=== PATIENT | male | born 1970 | race Caucasian/White ===

== ENCOUNTER 2021-01-07 11:13 | Outpatient (CLI) | payer MEDICARE, SELFPAY ==
--- NOTE | 2021-01-07 12:13 | XR_ITS ---
WS: [id number] Right hip, AP and frog leg views, 01/07/2021 Clinical Data: CHRONIC HIP PAIN Comparison: None. Findings: There is a right hip nail reducing an old right intertrochanteric hip fracture. The femoral head shows no erosion, destruction or sclerosis or cyst formation. There is a spur on the medial inferior aspect of the femoral head. There is a small right acetabular lip. XR/XR hip RT 2-3V wo/w pel* 57285 Impression: 1. Satisfactory position right hip nail reduce in old right intertrochanteric f racture. 2. 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 Tonnis classification: grade 1: sclerosis of femoral head and acetabulum or sli ght joint space narrowing or slight lipping at joint margins
== END 2021-01-07 11:14 | disposition home or self-care (01) ==
LOC: RADWPI 11:20 → RAD 12:06
PROVIDERS: PCP Family Medicine; Visit Provider Family Medicine
DX: M88.9 Osteitis deformans of unspecified bone (principal); M25.551 Pain in right hip; G89.29 Other chronic pain; Z96.641 Presence of right artificial hip joint
CPT/HCPCS: 73502

== ENCOUNTER → 2021-01-20 10:44 | Day surgery (SDC) | payer MEDICARE, SELFPAY ==
[2021-01-20 11:05] VITALS: BMI 32.3
--- NOTE | 2021-01-20 11:05 | PC.NURSE ---
Pt states he had labs drawn on 01/06/21 per his PCP and Calcium level was 9.6. Prolia injection given as ordered.
[2021-01-20] MEDS: denosumab 60 mg SDV SUBCUT (11:12)
[2021-01-20 11:15] VITALS: BP 133/73; PULSE 107; RESP 18; TEMP 36.6; O2SAT 97
== END ==
LOC: GILAB 10:50
PROVIDERS: PCP Family Medicine; Visit Provider Family Medicine
DX: M89.9 Disorder of bone, unspecified (principal)
CPT/HCPCS: 96372; J0897

== ENCOUNTER → 2021-02-03 08:49 | Outpatient (BNVA) | payer MEDICARE, SELFPAY | PROVIDERS: PCP Family Medicine; Referring Provider Family Medicine; Visit Provider Internal Medicine | DX: M81.0 Age-related osteoporosis without current pathological fracture (principal); M89.9 Disorder of bone, unspecified; M88.88 Osteitis deformans of other bones; M25.551 Pain in right hip; M25.552 Pain in left hip; Z87.891 Personal history of nicotine dependence | CPT/HCPCS: 99205 ==

== ENCOUNTER → 2021-02-15 08:24 | Outpatient (BNVA) | payer MEDICARE, SELFPAY | PROVIDERS: PCP Family Medicine; Visit Provider Anesthesiology | DX: G89.29 Other chronic pain (principal); M54.50 Low back pain, unspecified; M54.2 Cervicalgia; M89.9 Disorder of bone, unspecified; M81.0 Age-related osteoporosis without current pathological fracture; Z79.891 Long term (current) use of opiate analgesic; Z87.891 Personal history of nicotine dependence | CPT/HCPCS: 99204 ==

== ENCOUNTER 2021-02-18 10:29 | Outpatient (CLI) | payer MEDICARE, SELFPAY ==
--- NOTE | 2021-02-18 11:18 | ECG_ITS ---
[facility] Test Date: 2021-02-18 Pat Name: Manoj Orona Jr Department: Room: Gender: Male [employer]: : 1970 Requested By: Bulmaro Seymour Order Number: [id number] Willis MD: Cecilio Adan M.D. Measurements Intervals [place] Rate: 100 P: 24 NC: 142 QRS: -21 QRSD: 98 T: 3 QT: 333 QTc: 430 Interpretive Statements SINUS TACHYCARDIA BORDERLINE LEFT AXIS DEVIATION [QRS AXIS < -20] ABNORMAL RHYTHM ECG No previous ECG available for comparison Electronically Signed On 02-18-2021 22:49:01 CDT by Cecilio Adan M.D. [id number]
== END 2021-02-18 10:30 | disposition home or self-care (01) ==
LOC: RT 10:33
PROVIDERS: PCP Family Medicine; Visit Provider Anesthesiology
DX: Z79.891 Long term (current) use of opiate analgesic (principal); R00.0 Tachycardia, unspecified; R94.31 Abnormal electrocardiogram [ECG] [EKG]
CPT/HCPCS: 93005

== ENCOUNTER → 2021-03-16 09:21 | Outpatient (BNVA) | payer MEDICARE, SELFPAY | PROVIDERS: PCP Family Medicine; Visit Provider Specialist | DX: G43.711 Chronic migraine without aura, intractable, with status migrainosus (principal); M54.2 Cervicalgia; M54.9 Dorsalgia, unspecified; G89.29 Other chronic pain; R20.0 Anesthesia of skin; R20.2 Paresthesia of skin; Z87.891 Personal history of nicotine dependence | CPT/HCPCS: 99204; 99214 ==

== ENCOUNTER 2021-04-15 13:44 | Outpatient (CLI) | payer MEDICARE, SELFPAY ==
--- NOTE | 2021-04-15 14:16 | XR_ITS ---
WS: [id number] XR hip BI m 5V wo/w pel* 47887 REASON FOR EXAM: M25.559 - Pain in unspecified hip FINDINGS: RIGHT HIP: Short intramedullary dany and large femoral neck nail fixation of previous intertrochanteric fracture of the right hip. Mild coxa vera deformity. No fracture or dislocation. LEFT HIP: Previous hip nailing with 3 long screws. Marked varus deformity due to presumed subacute fracture th rough the intertrochanteric region with severe varus deformity. The femoral neck and nails are essent ially in a horizontal position. XR/XR hip BI m 5V wo/w pel* 11008 IMPRESSION: Left hip fracture of uncertain age by history. There R naked margins of bone in dicating subacute or acute fracture. Severe varus deformity as above.
== END 2021-04-15 13:45 | disposition home or self-care (01) ==
PROVIDERS: PCP Family Medicine; Visit Provider Specialist
DX: M25.551 Pain in right hip (principal); S72.002A Fracture of unspecified part of neck of left femur, initial encounter for closed fracture; X58.XXXA Exposure to other specified factors, initial encounter
CPT/HCPCS: 73523

== ENCOUNTER 2021-04-15 15:17 | Emergency (ER) | payer MEDICARE, SELFPAY ==
--- NOTE | 2021-04-15 15:31 | CT_ITS ---
WS: [id number] CT LEFT HIP, NONCONTRAST. HISTORY: LEFT hip fracture. Technique: All CT scans at [facility] use at least one of these dose optimization techniques: automated exposure control; mA and/or kV adjustment per patient size (includes targeted exams where dose is matched to clinical indication); or iterative reconstruction. DLP: 1364.42 mGy.cm COMPARISON: Radiograph 04/15/2021. Deformity of the LEFT hip with varus deformity. There is impaction along an intertrochanteric fractur e. Fracture by approximately 17 mm. There are 3 previously placed long screws extending joan ng the greater trochanter to the femoral neck and head. Fracture is near the base of the screws and e xtends subtrochanteric into the lesser trochanter. There is an additional nondisplaced fracture through the LEFT inferior pubic rami. There are fracture s in 2 [address]. These are nondisplaced fractures. There is an additional nondisplaced fractur e along the superior LEFT pubic rami. This fracture is best seen on the coronal reformats. CT/CT hip LT wo con* 45731 IMPRESSION: 1. New acute oblique fracture with displacement by 17 mm through the base of t he intertrochanteric screws. Fracture is intertrochanteric and extends subtroch anteric. 2. New nondisplaced fractures involving the LEFT superior and inferior pubic r ami.
--- NOTE | 2021-04-15 15:33 | W.ED.GENADLT ---
HPI - General Adult General: Chief complaint: Extremity Injury, Lower Stated complaint: FX HIP Time Seen by Provider: 04/15/21 15:21 History of Present Illness: HPI narrative: Patient is a 50-year-old male with history of Paget's disease, chronically wheelchair-bound, status post bilateral fixations presenting to the emergency room with complaints of 2 weeks of worsening left-sided hip pain. Patient was seen earlier today [place] [facility] was diagnosed with left-sided hip fracture. Patient was told to come to the emergency room for evaluation. Patient at the present time reports mild pain. Denies any other injuries. Patient reports that he thinks that he sustained the injury when he was in bed. Patient denies any rolling, other injuries, fall, or other trauma. Onset:2 weeks ago Duration:2 weeks Location:home Severity: moderate Review of Systems Narrative: Constitutional: No fever, no chills. HEENT: No vision changes CV: No chest pain, no palpitations PULM: no cough, no dyspnea. GI: No abdominal pain, no N/V/D. : No dysuria MSKEL: +L sided hip pain SKIN: No new rashes, no lesions. NEURO: No headache, no focal weakness. HEME: No visible bruises PSYCH: Normal mood PFSH ED PFSH: Medical History Carpal tunnel syndrome of right wrist Chronic lower back pain Chronic neck and back pain Cluster headaches Encounter for long-term opiate analgesic use Fibromyalgia High serum cholesterol sulfate HTN (hypertension) with goal to be determined IBS (irritable bowel syndrome) Opioid contract exists Osteoporosis Paget's disease Surgical History History of cholecystectomy History of hip surgery Family History Father Diabetes Chronic pain Mother Hypertension Social History Smoking and tobacco status: former smoker Quit status (tobacco): has quit using tobacco Second hand smoke exposure: Yes Smoking risk assessment/counseling performed?: Yes Alcohol intake: never Desire information about alcohol rehabilitation?: No Counseling given: No Desire information about substance/drug rehabilitation?: No Counseling given: Yes Caregiver/support person: Yes Lives independently: Yes Household members: spouse and family Housing: House Marital status: Number of children: 4 Highest education level completed: Some College, No Degree service: No Current occupational status: disabled History of recent travel: No Physical Exam Narrative: EXAM NARRATIVE: Head: Atraumatic Eyes: PERRL, conjunctiva without injection ENT: Mucous membrane moist NECK: Supple, ROM intact LUNGS: LCTAB, no crackles/rhonchi CV: RRR ABDOMEN: Soft, nontender in all quadrants EXTREMITY: Normal ROM of L hip intact, +moderate L hip tenderness to palpation, neurovascular exam of the L hip intact SKIN: No rash or erythema NEURO: Awake and alert, no focal motor deficits PSYCH: Normal mood and affect Course Vital Signs: Vital signs: Vital Signs Temperature 98.9 F 04/15/21 16:02 Pulse Rate 115 H 04/15/21 16:02 Respiratory Rate 16 04/15/21 16:02 Blood Pressure 132/102 04/15/21 16:02 Pulse Oximetry 97 04/15/21 16:02 MDM - General Adult MDM Narrative: Medical decision making narrative: 50M presenting to the ER with complaints of L hip pain w/ XR from [facility] showing L sided hip fracture. On exam neurovascularly intact. +mild tttp to the L hip. Case was immediately discussed with Dr. Man at 5:17 PM. Given patient already has 2 previous fixations with now what looks like fracture at the base of the screw, patient will need possible plating. Dr. Orta reviewed thinks that this may be a complicated procedure patient will be better suited for transfer outside facility. Case was discussed with Dr. Meredith who agreed with the transfer to [facility] for orthopedic evaluation. Disposition: Transfer to outside hospital Lab Data: Labs: Lab Results 04/15/21 20:50 SARS-CoV-2 Ag (Rap id) Negative (Negative) Imaging Data^: Other Imaging: Radiologist's impression: [address] [id number] ReportSigned Patient: Manoj Orona Jr #: [id number]: 1970Acct#:[id number]/Sex: 50 / MADM Date: 04/15/21Loc: RADRoom/Bed:Attending Dr: Madhuri Quevedo MD Ordering Provider/Ordering MD: Madhuri Quevedo MD Date of Service: 04/15/21 Procedure(s): XR hip BI m 5V wo/w pel* 66898 Accession Number(s): [id number] Report Number: [id number] WS: [id number] XR hip BI m 5V wo/w pel* 66522 REASON FOR EXAM: M25.559 - Pain in unspecified hip FINDINGS: RIGHT HIP: Short intramedullary dnay and large femoral neck nail fixation of previous intertrochanteric fracture of the right hip. Mild coxa vera deformity. No fracture or dislocation. LEFT HIP: Previous hip nailing with 3 long screws. Marked varus deformity due to presumed subacute fracture through the intertrochanteric region with severe varus deformity. The femoral neck and nails are essentially in a horizontal position. XR/XR hip BI m 5V wo/w pel* [id number] IMPRESSION: Left hip fracture of uncertain age by history. There R naked margins of bone indicating subacute or acute fracture. Severe varus deformity as above. Dictated By:Manolo Flores Jr MDSigned By:Manolo Flores Jr MDSigned Date/Time:04/15/21 1459DD/ [address] [id number] Scan ReportSigned Patient: Manoj Orona Jr #: [id number]: 1970Acct#:[id number]/Sex: 50 / MADM Date: 04/15/21Loc: ERRoom/Bed:Attending Dr: Ordering Provider/Ordering MD: Jessica Jordan MD Date of Service: 04/15/21 Procedure(s): CT hip LT wo con* 81320 Accession Number(s): [id number] Report Number: [id number] WS: [id number] CT LEFT HIP, NONCONTRAST. HISTORY: LEFT hip fracture. Technique: All [facility] scans at [facility] use at least one of these dose optimization techniques: automated exposure control; mA and/or kV adjustment per patient size (includes targeted exams where dose is matched to clinical indication); or iterative reconstruction. DLP: 1364.42 mGy.cm COMPARISON: Radiograph 04/15/2021. Deformity of the LEFT hip with varus deformity. There is impaction along an intertrochanteric fracture. Fracture by approximately 17 mm. There are 3 previously placed long screws extending along the greater trochanter to the femoral neck and head. Fracture is near the base of the screws and extends subtrochanteric into the lesser trochanter. There is an additional nondisplaced fracture through the LEFT inferior pubic rami. There are fractures in [address] These are nondisplaced fractures. There is an additional nondisplaced fracture along the superior LEFT pubic rami. This fracture is best seen on the coronal reformats. CT/CT hip LT wo con* 25744 IMPRESSION: 1. New acute oblique fracture with displacement by 17 mm through the base of the intertrochanteric screws. Fracture is intertrochanteric and extends subtrochanteric. 2. New nondisplaced fractures involving the LEFT superior and inferior pubic rami. Dictated By:Luisa Ochoa DOSigned By:Luisa Ochoa DOSigned Date/Time:04/15/21 1654DD/ 1639 Discharge Plan Discharge Patient Disposition: Admitted As Inpatient Clinical Impression: Hip fracture Condition: Stable Coding Level of Care Code ED Cook Fry for Charline Kennedy
[2021-04-15 15:50] VITALS: BP 132/102; PULSE 115; RESP 16; TEMP 37.2; O2SAT 97; BMI 29.4
[2021-04-15 16:02] VITALS: BP 132/102; PULSE 115; RESP 16; TEMP 37.2; O2SAT 97
--- NOTE | 2021-04-15 16:04 | PC.NURSE ---
Pt arrived with a staff member form out patient imaging, staff advised this Rn pt was seen today for pain in left hip. Pt reports he was laying in bed about a week ago and felt a sudden sharp pain. 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 Pt A/O, vss, pt placed on monitor.
[2021-04-15] MEDS: acetaminophen-codeine 300-30mg Tablet 1 TAB PO (16:46)
[2021-04-15 21:46] LABS: SARS Covid-2 Antigen Negative (Negative)
[2021-04-15 22:00] VITALS: BP 152/98; PULSE 116; RESP 20; O2SAT 98
[2021-04-15 23:28] VITALS: RESP 18; O2SAT 97
[2021-04-15] MEDS: oxyCODONE-APAP 5-325 mg Tablet 1 TAB PO (23:28)
[2021-04-16 02:23] VITALS: BP 148/92; PULSE 102; RESP 20; O2SAT 97
== END 2021-04-16 01:05 ==
PROVIDERS: Emergency Provider Emergency Medicine; PCP Family Medicine
DX: S72.002A Fracture of unspecified part of neck of left femur, initial encounter for closed fracture (principal); X58.XXXA Exposure to other specified factors, initial encounter; Z87.891 Personal history of nicotine dependence
CPT/HCPCS: 73523; 73700; 87426; 99283